=== PATIENT | female | born 1935 | race Caucasian/White ===

== ENCOUNTER 2016-06-13 14:49 | Emergency (ER) | payer MEDICARE, BC ==
[~2016-06-13] VITALS: Ht 165.1 cm; Wt 58.7 kg
[~2016-06-13 14:49] MED LIST: ASCO-294 PO; ASPI-557 PO; CILO50TA PO; HYDR12.530 PO; METO-275 PO; MULT-728 PO; [UNRECOGNIZED DRUG - CODE] PO
[2016-06-13 14:53] VITALS: Ht 165.1 cm; Wt 58.7 kg
--- NOTE | 2016-06-13 15:11 | NUR ---
REPORT TO PHOEBE MCKEON
[2016-06-13] MEDS ORDERED: NITR0.4T39 PO (15:18)
[2016-06-13] MEDS ORDERED: MULT1TAB69 PO (15:20)
[2016-06-13 15:39] LABS: ANION GAP 12 MEQ/L (5-15); BUN/CREATININE RATIO 23 RATIO (6-26); CHLORIDE 108 MEQ/L (98-107); CO2 - CARBON DIOXIDE 27 MEQ/L (22-30); CREATININE 1.2 MG/DL (0.7-1.2); GLOMERULAR FILTRATION RATE 43; GLUCOSE 131 MG/DL (65-110); SODIUM 147 MEQ/L (134-144)
[2016-06-13 15:40] LABS: BASOPHILS % (AUTO) 0.4 % (0-2); EOSINOPHILS # (AUTO) 0.4 T/MM3 (0-0.5); EOSINOPHILS % (AUTO) 4.3 % (0-4); HCT - HEMATOCRIT 34.8 % (36-46); HGB - HEMOGLOBIN 11.6 GM/DL (12-16); IMMATURE GRANULOCYTE # (AUTO) 0.02 T/MM3 (0.00-0.03); IMMATURE GRANULOCYTE % (AUTO) 0.2 % (0.0-0.5); LYMPHOCYTES % (AUTO) 24.2 % (23-45); MEAN CORPUSCULAR HGB 31.6 UUG (26-34); MEAN CORPUSCULAR HGB CONC(MCHC 33.3 GM/DL (31-37); MEAN CORPUSCULAR VOLUME 94.8 UM3 (80-100); MEAN PLATELET VOLUME 9.8 UM3 (9.4-12.4); MONOCYTES # (AUTO) 0.5 T/MM3 (0-0.8); MONOCYTES % (AUTO) 6.1 % (0-9.0); NEUTROPHILS #(AUTO)-ABSOLUTE 5.4 T/MM3 (1.8-7.7); NEUTROPHILS % (AUTO) 64.8 % (33-66); RED BLOOD COUNT 3.67 M/MM3 (4.00-5.20); WBC - WHITE BLOOD COUNT 8.4 T/MM3 (4.5-11.0)
[2016-06-13 15:51] LABS: PROBNP 581 PG/ML (0-175)
--- NOTE | 2016-06-13 16:35 | ERPDOC ---
Departure Disposition Decision Date: Jun 13, 2016 Disposition Decision Time: 18:24 Disposition: 01 DISCHARGED HOME, SELF-CARE Impression Impression Impression: Primary Impression: Atrial flutter Atrial flutter type: unspecified Qualified Codes: I48.92 - Unspecified atrial flutter Severity: Moderate Condition: Stable Seen By: Mid-level only Referrals: MARTA PELLETIER MD (Family) Patient Instructions: Atrial Flutter (ED) Problems/Meds/Labs Reviewed?: Yes Medications reviewed and manag: Yes Additional Instructions: Take the Xarelto daily as prescribed. I do want you to call and schedule an appointment for follow up with Dr Pelletier or Dr Gray this week to discuss further treatment with them. Your labs and CT today were normal. Return to ER with any return of symptoms. Avoid use of Ibuprofen or Aspirin once taking the Xarelto. You did have 2 masses in the left breast on the CT scan that I would like Dr Pelletier to confirm are old. Follow up care ordered?: Yes Mental Status: Alert, Oriented Scripts Rivaroxaban (Xarelto) 20 Mg Tablet 1 TAB PO DAILY, #30 TAB 0 Refills Prov: ALEJANDRA MONSON HEAD CUSTODIAN 06/13/16 HPI - Cardiac General Chief Complaint: Cardiac Complaint Stated Complaint: HEART PALPS Time Seen by Provider: 15:10 Source: patient Exam Limitations: no limitations HPI - Cardiac General Initial Comments She was at home today and had finished eating lunch around 1300. Went to go sit down and felt like her heart was beating hard and fast. This did not go away so she decided to come to Er. During this episode she did note that she had some increased SOA with ambulation and also some pain in the right arm from the elbow to the fingers. Upon arrival to Er she was noted to be in atrial flutter on EKG with HR in the 130s. She did convert on her own and repeat EKG does show NSR with rate of 91. She does think that she has a history of atrial fibrillation in the remote past but does not take a blood thinner and is taking Metoprolol daily. She has been taking her medications as prescribed and has not been ill lately. Has been eating and drinking normally. Did have some mild chest tightness as well but is no longer having at time of exam. Occurred At: home Onset/Timing: Rapid Duration: 1-3 hrs (at 1330) Severity: moderate Location: substernal Activities at Onset/Context: during/after eating Nitro Today/Relief: no nitro taken today Aspirin Today: unknown Associated Symptoms: chest pain (Did have some chest pressure) Allergies: Coded Allergies: No Known Allergies (Unverified , 06/13/16) Past History Past Medical History Cardiac: A-fib Surgical History General: gallbladder, tonsils Reproductive/: hysterectomy Vaccines Hx Influenza Vaccination: Yes (11/2009) Hx Pneumococcal Vaccination: Yes (2002) Social History Smoking Status: Current every day smoker Substance Use Type: does not use Alcohol Intake: none Review of Systems Constitutional Constitutional: DENIES: chills, dizziness, fatigue, fever, weakness Cardiovascular Cardiac: chest pain, dyspnea on exertion, DENIES: orthopnea Rhythm/Rate: irregular beat, palpitations Vascular: DENIES: pedal edema, unilateral swelling Pulmonary Respiratory: DENIES: cough, dyspnea, sputum, tachypnea GI Upper Abdomen: DENIES: nausea, pain, vomiting Lower Abdomen: DENIES: constipation, diarrhea, pain Musculoskeletal General: DENIES: pain Neurological General: DENIES: headache, numbness, tingling, weakness Physical Exam General General Nourishment: well nourished, well developed, appears stated age, no acute distress, adult General Body Habitus: well groomed Vitals and Pain First Documented Vital Signs Date Time Temp Pulse Resp B/P Pulse Ox O2 Delivery O2 Flow Rate FiO2 06/13/16 14:53 98.3 144 16 111/61 97 Room Air Weight: Kilograms: 58.700 Height (feet): 5 Height (inches): 5.00 Triage Pain Scale: RN VS reviewed by Provider: Yes Normal Exams: Neck: Full range of motion, without adenopathy, JVD, bruits or thyromegaly Chest/Resp: Clear all obando, with good airflow, and symmetry bilaterally CV: Regular rate and rhythm, without murmur or gallop, Pulses 2+ all extremities, capillary refill, <2 seconds all ext., no pedal edema noted Abdomen: Bowel sounds positive, soft, non-tender, non-distended, no hepatosplenomegaly, masses or bruits noted Lymphatic: No lymphadenopathy, or lymphedema noted Integumentary: No rashes, hives, or bruising noted Neurologic: Patient is alert, and oriented Psychiatric: Patient exhibits, appropriate attention, emotion and affect Differential Diagnoses Considering: Acute NV, Atrial Fibrillation, Bradycardia, Heart Block, Ventricular Tachycardia Progress Results/Orders Orders Procedure Category Date Status Time Cbc W/Auto LAB 06/13/16 Complete Diff-Reflex Manual 15:25 Bmp - Basic Metabolic LAB 06/13/16 Complete Panel 15:25 Probnp LAB 06/13/16 Complete 15:25 Troponin I W LAB 06/13/16 Complete Hemolysis Index 15:25 EKG EKG 06/13/16 Taken 15:25 Chest 1 View RAD 06/13/16 Taken 15:25 Iv Lock (Ed Only) EDM 06/13/16 Transmitted 15:25 EKG EKG 06/13/[address] Chest W/Contrast CT 06/13/16 Taken Iohexol (Omnipaque) PHA 06/13/16 Complete 17:24 Normal Saline (Ns) PHA 06/13/16 Complete 17:25 Saline Flush (Iv PHA 06/13/16 Complete Flush) 17:25 Rivaroxaban (Xarelto) PHA 06/13/16 Complete 18:30 Lab Results Laboratory Tests Test 06/13/16 15:08 White Blood Count 8.4T/MM3 Red Blood Count 3.67M/MM3 Hemoglobin 11.6GM/DL Hematocrit 34.8% Mean Corpuscular Volume 94.8UM3 Mean Corpuscular Hemoglobin 31.6UUG Mean Corpuscular Hemoglobin Concent 33.3GM/DL RDW Standard Deviation 45.1FL Platelet Count 275T/MM3 Mean Platelet Volume 9.8UM3 Immature Granulocyte % (Auto) 0.2% Neutrophils (%) (Auto) 64.8% Lymphocytes (%) (Auto) 24.2% Monocytes (%) (Auto) 6.1% Eosinophils (%) (Auto) 4.3% Basophils (%) (Auto) 0.4% Absolute Immature Granulocyte (auto 0.02T/MM3 Absolute Neutrophils (auto) 5.4T/MM3 Absolute Lymphocytes (auto) 2.0T/MM3 Absolute Monocytes (auto) 0.5T/MM3 Absolute Eosinophils (auto) 0.4T/MM3 Absolute Basophils (auto) 0.0T/MM3 Turbidity < 20 Sodium Level 147MEQ/L Potassium Level 4.0MEQ/L Chloride Level 108MEQ/L Carbon Dioxide Level 27MEQ/L Anion Gap 12MEQ/L Blood Urea Nitrogen 27.0MG/DL Creatinine 1.2MG/DL Glomerular Filtration Rate Calc 43 BUN/Creatinine Ratio 23RATIO Glucose Level 131MG/DL Calculated Osmolality 289MOSM/KG Calcium Level 10.0MG/DL Icterus Index < 2 Troponin I < 0.012ng/ml AP-Etg-S-Type Natriuretic Peptide 581PG/ML Chemistry Specimen Hemolysis < 15 Medications Current ED Medications Iohexol 1 bottle 1 bottle STK-MED ONCE .ROUTE ; Start 06/13/16 at 17:24; Stop 06/13/16 at 17:25; Status DC Sodium Chloride (NS) 100 ml @ As Directed STK-MED ONCE .ROUTE ; Start 06/13/16 at 17:25; Stop 06/13/16 at 17:26; Status DC Sodium Chloride (Iv Flush) 10 ml STK-MED ONCE .ROUTE ; Start 06/13/16 at 17:25; Stop 06/13/16 at 17:26; Status DC Rivaroxaban (Xarelto) 20 mg O ONCE PO Last administered on 06/13/16t 18:37; Start 06/13/16 at 18:30; Stop 06/13/16 at 18:31; Status DC Progress Progress CBC, BMP, troponin, and BNP today are all normal. She has remained in NSR while in ER. Denies any chest pain or SOA. I did speak with Dr Kimball regarding labs and HPI. He does recommend that she be started on a blood thinner today of Warfarin or Xarelto and have her follow up with Dr Gray this week in clinic. Her chest xray did show an abnormality in the upper chest that could not be excluded as a mass. CT of chest was obtained while in Er. She does report that at times she feels like her food does get stuck. CT does show centrilobar emphysema but no mass. She does have two masses in the left breast that I did disuss with her. She has yearly mammograms and the last one was less than a year ago. She does know that she does have 2 lesions in this breast but they are benign. Did encourage her to follow up with Dr Pelletier to make sure that these are the lesion identified on previous mammograms. I also did talk to her about the pros and cons of starting a blood thinner. The atrial flutter does increase her risk for stroke. After talking with her about this and the risks and benefits of Xarelto vs Warfarin she will go ahead and start Xarelto today but follow up in clinic with Dr Gray this week to discuss nursing home use. Xray Xray : Reason for Exam: chest pain Xray: CXR Portable Interpretation: Abnormal (There is a fullness in the upper chest around the area of the trachea/esophagus that cannot be excluded as a mass. ) CT CT : Reason for Exam: abnormal chest xray CT: Chest IV contrast Interpretation: Abnormal (severe centrilobar emphysema, 2 adjacent mass lesions in the left breast.) ALEJANDRA MONSON APRN Jun 13, 2016 16:35
[2016-06-13] MEDS ORDERED: IOHEXOL 300 MG/ML 75ml INJECTION ONE (17:24)
[2016-06-13] MEDS ORDERED: NORMAL SALINE 100 ML ONE (17:25)
[2016-06-13] MEDS ORDERED: SALINE FLUSH 10ml SYRINGE ONE (17:25)
--- NOTE | 2016-06-13 17:25 | NUR ---
STATUS PATIENT IS RESTING IN BED WITH NO COMPLAINTS. EDUCATED PATIENT ON WAIT TIMES. FAMILY AT BEDSIDE.
--- NOTE | 2016-06-13 17:32 | NUR ---
TO CT PER CART.
--- NOTE | 2016-06-13 17:45 | NUR ---
BACK FROM CT
--- NOTE | 2016-06-13 18:14 | NUR ---
PROVIDER Dago MONSON CAM MILLING MACHINE OPERATOR IN TO SEE PATIENT.
[2016-06-13] MEDS ORDERED: RIVA20TA PO (18:26)
[2016-06-13] MEDS ORDERED: RIVAROXABAN 20 MG TABLET PO ONE (18:30)
[2016-06-13 18:40] VITALS: BP 116/53; PULSE 76; RESP 28; TEMP 98.3; O2SAT 97
--- NOTE | 2016-06-14 08:59 | DI ---
Indication: ITS.REASON: chest xray abnormality PROCEDURE: CT CHEST W/CONTRAST: Encounter: Initial Comparison: None Technique: Axial CT images were performed through the chest after the administration of intravenous contrast. Coronal and sagittal two-dimensional reformats. Automated Exposure Control and Iterative Reconstruction dose reducing techniques were utilized. Contrast: Omnipaque 300 100 mL Findings: Moderate emphysema. Probable scarring in the right lower lobe. 4 mm noncalcified right upper lobe pulmonary nodule. No pleural effusion or pneumothorax. The central airways are patent. There are two prominent left breast masses seen in the subareolar region measuring 2.6 and 2.3 cm in diameter. No axillary or mediastinal adenopathy. Heart size is normal. No pericardial effusion. Scattered atherosclerotic plaque. The upper abdomen shows no acute findings. Bone windows are grossly unremarkable for age. Impression: 1. No acute disease process in the chest. 2. Two left breast masses could be benign or malignant. Recommend correlation with diagnostic mammography and ultrasound. There is a preliminary report by [employer]. .
--- NOTE | 2016-06-14 09:21 | DI ---
Indication: ITS.REASON: chest pain PROCEDURE: CHEST 1 VIEW: Encounter: Initial Comparison: CT chest from the same date Findings: Lungs are hyperinflated with emphysema. Probable scarring versus minimal atelectasis in the left base. No focal consolidative pneumonia, pleural effusion or pneumothorax. The heart size, pulmonary vascularity and mediastinal contours are within normal limits. Impression: No acute cardiopulmonary disease. There is a preliminary report by [employer]. .
== END 2016-06-13 18:40 | disposition home or self-care (01) ==
LOC: ED 14:49
DX: I48.92 Unspecified atrial flutter (principal)
CPT/HCPCS: 71010; 71260; 80048; 83880; 84484; 85025; 93005; 99284; A9270; J7050; Q9967

== ENCOUNTER → 2016-06-16 | Outpatient (CLI) | payer MEDICARE, BC ==
[~2016-06-16] MED LIST changes: -MULT-728 PO; +MULT1TAB69 PO; +NITR0.4T39 PO; +RIVA20TA PO
== END ==
LOC: WC.BC 09:11
PROVIDERS: ATTEND Family Medicine
DX: D24.2 Benign neoplasm of left breast (principal); N64.59 Other signs and symptoms in breast; N64.89 Other specified disorders of breast; N63 Unspecified lump in breast
CPT/HCPCS: G0206; G0279

== ENCOUNTER → 2016-07-01 | Outpatient (CLI) | payer MEDICARE, BC ==
[~2016-07-01] VITALS: Ht 165.1 cm; Wt 56.8 kg
[~2016-07-01] MED LIST changes: +REGADENOSON 0.4mg/5ml INJECTION IV ONE; +SALINE FLUSH 10ml SYRINGE ONE
--- NOTE | 2016-07-02 08:19 | ESTF ---
DATE OF PROCEDURE 07/01/2016 PROCEDURE Pharmacological/low-level exercise stress nuclear scan. INDICATION Atrial flutter, exertional chest tightness. Patient is a smoker, has a significant mitral regurgitation. DESCRIPTION OF PROCEDURE The patient was unable to exercise on treadmill fully due to unsteady gait. She underwent rest injection of technetium-99 Myoview dose of 12.5 mCi, Lexiscan dose of 0.4 mg associated with low-level exercise. It was not associated with any angina, and this was followed by technetium-99m Myoview dose of 33.3 mCi. Rest EKG shows a sinus rhythm, occasional PVCs. During pharmacological stress, there was no ST depression or elevation diagnostic of ischemia, no significant or new arrhythmia. There was about half a millimeter slightly up-sloped ST depression present judged not to meet the EKG criteria for ischemia. At one point, about 4 minutes in recovery, it was about 0.5 to 1 mm in inferolateral lead considered borderline abnormal but did not meet the clear criteria for ischemia, still with occasional PVCs and patient asymptomatic without any chest pain. Stress and rest perfusion images were reviewed. A slightly reduced uptake in the anteroseptal wall, more evident on rest images consistent with breast tissue attenuation artifact. No significant perfusion defects were identified. Perfusion images are considered normal. Gated images are normal. Normal wall motion throughout. LVEF of 63% on stress images and 70% on rest images. IMPRESSION: 1. Inability to exercise fully on treadmill. 2. Pharmacological/low-level exercise stress nuclear scan clinically negative. 3. Electrically borderline ST-St abnormalities as described above with PVCs - fall short of meeting alexia ST segment depression criteria for ischemia. Clinical correlation is recommended. 4. Stress and rest perfusion images show normal myocardial perfusion and normal LV ejection fraction. In summary, no high risk findings are present. Will review clinical course and progress. If symptoms worsen or change, may need additional discussion. EMILIA
== END ==
LOC: IMA 10:23
PROVIDERS: ATTEND Internal Medicine Cardiovascular Disease
DX: I49.3 Ventricular premature depolarization (principal); R94.39 Abnormal result of other cardiovascular function study; R26.2 Difficulty in walking, not elsewhere classified; I48.92 Unspecified atrial flutter
CPT/HCPCS: 78452; 93017; A9502; J2785

== ENCOUNTER → 2016-08-04 | Outpatient (CLI) | payer MEDICARE, BC ==
[~2016-08-04] MED LIST changes: +IOHEXOL 300 MG/ML 75ml INJECTION ONE; +NORMAL SALINE 100 ML ONE; -REGADENOSON 0.4mg/5ml INJECTION IV ONE
--- NOTE | 2016-08-04 10:52 | DI ---
Indication: ITS.REASON: HEMATURIA PROCEDURE: CT RENAL W/WO CONTRAST: Encounter: Initial Comparison: Chest CT dated June 13, 2016 Technique: Axial CT images were performed through the abdomen and pelvis before and after the administration of intravenous contrast. Delayed postcontrast images were also performed. Coronal and sagittal 2-dimensional reformats. Automated Exposure Control and Iterative Reconstruction dose reducing techniques were utilized. Contrast: Omnipaque 300 100 mL Findings: Chronic scarring and atelectasis in both lower lobes. Noncontrast imaging shows no renal or ureteral stone disease. Unopacified bladder appears grossly normal. Postcontrast images show no liver masses. There is mild intrahepatic bile duct dilatation, probably related to age and prior cholecystectomy. The spleen, pancreas and adrenal glands are within normal limits. Kidneys enhance normally. No renal mass lesions or hydronephrosis. Scattered atherosclerotic plaque in the arterial vasculature. No abdominal or pelvic lymphadenopathy. The bladder shows no focal wall thickening or enhancing mass. Uterus is surgically absent. No free fluid. No evidence of a bowel obstruction. Bone windows show mild degenerative change and scoliosis in the spine. Delayed postcontrast images show normal excretion of contrast from both renal collecting systems without focal filling defect or mass. The ureters are normal in course and caliber. Impression: No acute disease process seen. No clear etiology for the patient's hematuria. .
== END ==
LOC: IMA 09:34
PROVIDERS: ATTEND Urology
DX: R31.9 Hematuria, unspecified (principal)
CPT/HCPCS: 74178; J7050; Q9967